=== PATIENT | female | born 1995 | race Caucasian/White ===

== ENCOUNTER 2018-10-07 10:37 | Inpatient (IN) ==
[2018-10-07 11:54] LABS: Amphetamine Screen,Urine Negative ng/mL (Cutoff=1000); Barbiturate Screen,Urine Negative ng/mL (Cutoff=200); Benzodiazepines Screen,Urine Negative ng/mL (Cutoff=200); Cannabinoid Screen,Urine Negative ng/mL (Cutoff = 50); Cocaine Screen,Urine Negative ng/mL (Cutoff= 300); Opiate Screen,Urine Negative ng/mL (Cutoff=300); Phencyclidine Screen,Urine Negative ng/mL (Cutoff=25)
[2018-10-07 12:50] LABS: Bilirubin,Urine Negative (Negative); Blood,Urine Moderate (Negative); Clarity,Urine Turbid (Clear); Color,Urine Dark Yellow (Yellow); Glucose,Urine (UA) Normal (Normal); Ketones,Urine Negative (Negative); Leukocyte Esterase,Urine Large (Negative); Nitrite,Urine Negative (Negative); Protein,Urine 30 mg/dL (Neg-Trace); Specific Gravity,Urine 1.016 (1.010-1.025); Urobilinogen,Urine Normal (Normal)
[2018-10-07 12:53] LABS: Bacteria,Urine Many per hpf (None-Few); Hyaline Casts,Urine None Seen per lpf (None-Few); RBC,Urine 0-3 per hpf (0-3); Squamous Epithelial Cell,Urine Many per lpf (None-Few); WBC,Urine TNTC per hpf (0-3)
--- NOTE | 2018-10-07 13:13 | Anesthesia Progress Note ---
Date of Encounter: 10/07/18 Time of Encounter: 13:08 Anesthesia Note - Note Note: 10/07/18 13:08 Evaluated patient for possible epidural for labor contractions. Assessment of patient revealed history of scoliosis of significant nature that required surgery at the age of 18 (2012). Pt does not know what levels or exact nature of surgery but states "there are two rods and screws." Assessment of the patient's back revealed a long scar that appears to run from C7 or T1 down to possibly T12 or L1 (difficult to fully assess levels of surgery). The patient understands the contraindications for epidural or spinal anesthesia. Questions from patient and family answered. Discussed with patient about possibility if needing to go to , that a GETA would be administered. Pt understands risks and benefits of GETA.
[2018-10-07 13:16] LABS: Amorphous Sediment,Urine Few (Few)
--- NOTE | 2018-10-07 15:00 | OB/GYN History & Physical ---
Date of Encounter: 10/07/18 Time of Encounter: 14:55 Assessment and Plan (1) 38 weeks gestation of Current visit: Yes Status: Acute Admit for labor GBS negative Consider AROM for augmentation Anticipate vaginal delivery POC per consult with Dr Vega History of Present Illness Chief complaint: Labor HPI: Ms. Ch is a 23 year old at 38 weeks and 4 days that presents to triage with c/o contractions. She denies leaking of fluid, vaginal bleeding, headaches, epigastic pain, and visual disturbances. She has had adequate care and has been seen by Dr Mathew. She has had a normal course. Labs: GBS negative Varicella immune Rubella immune RPR neg Blood type O+ Hep B NR HIV NR Past Med Surg Social Fam HX - Past Medical History Medical history: non-contributory Psychiatric history: no psych history - Past Surgical History Surgical History: non-contributory, orthopedic, other (spine - Shantal grecia (?)) Additional surgical history: scoliosis surgery 2013 - Social History Smoking Status: Never smoker Smokeless Tobacco Status: No Alcohol use: none Drug use: none Obstetrical History - Pregnancies : 1 Para: 0 Term: 0 : 0 Ab's: 0 Livin Medications and Allergies Pnv with Ca,No.72/Iron/FA [Pnv Plus Multivit Tab] 1 tab PO DAILY 10/07/18 [History] Allergy/AdvReac Type Severity Reaction Status Date / Time No Known Allergies Allergy Verified 12/31/17 13:35 Review of System OB All systems PM: reviewed and no additional remarkable complaints except as stated Exam - Constitutional Constitutional: well developed, well nourished, average body habitus, mild distress - HEENT HEENT: Normocephaly, Mucus Membranes Moist - Neck Neck exam: full ROM - Lungs Respiratory exam: CTAB - Cardiovascular Cardiovascular exam: RRR, +S1, +S2 - Abdomen Abdomen: Present: bowel sounds normal, gravid, non tender - Extremities Extremities exam: normal capillary refill, normal inspection, radial pulses palpable and symmetrical Deep Tendon Reflex Grade: 2+ Normal - Vulva Vulva: bilateral: normal - Vagina Vagina: Present: normal moisture - Cervix Dilation: 6 Effacement: 90 Station: 0 - Uterus Uterus exam: Present: normal size, normal contour. Absent: tender - Anus/Rectum Anus/Rectum: Present: normal perianal skin Results Abnormal lab results Urine Clarity Turbid (Clear) A 10/07/18 11:10 Urine Protein 30 mg/dL (Neg-Trace) H 10/07/18 11:10 Urine Blood Moderate (Negative) H 10/07/18 11:10 Ur Leukocyte Esterase Large (Negative) H 10/07/18 11:10 Urine Microscopic WBC TNTC per hpf (0-3) H 10/07/18 11:10 Ur Squamous Epith Cells Many per lpf (None-Few) H 10/07/18 11:10 Urine Bacteria Many per hpf (None-Few) H 10/07/18 11:10 Ur Culture Indicated? NO. (NO) A 10/07/18 11:10 All other labs normal. - VTE Reasons for not Prescribing Prophylaxis: Treatment not Indicated - Low risk for VTE
[2018-10-07] MEDS ORDERED: Ondansetron 4 MG/2 ML VIAL IVP PRN (15:05)
[2018-10-07] MEDS ORDERED: Famotidine 20 MG/2 ML VIAL IVP PRN (15:05)
[2018-10-07] MEDS ORDERED: Naloxone 0.4 MG/ML INJ IVP PRN (15:05)
[2018-10-07] MEDS ORDERED: Metoclopramide 10 MG/2 ML VIAL IVP PRN (15:05)
[2018-10-07] MEDS ORDERED: *HR* Nalbuphine 10 MG/ML AMPUL IVP PRN (15:05)
[2018-10-07 15:44] LABS: Basophils % 0.1 %; Eosinophils # 0.1 K/mcL (0.0-0.6); Eosinophils % 0.5 %; Hematocrit 32.8 % (35.3-44.9); Immature Granulocytes % 1.2 % (0-4); Lymphocytes # 1.7 K/mcL (0.6-4.6); Lymphocytes % 8.9 %; Mean Corpuscular HGB Conc 30.5 g/dL (31.6-35.5); Mean Corpuscular Hemoglobin 22.4 pg (28.0-33.3); Mean Corpuscular Volume 73.5 fL (83.0-100.0); Mean Platelet Volume 12.1 fL (9.4-12.4); Monocytes # 1.1 K/mcL (0.0-1.3); Monocytes % 5.5 %; Neutrophils # 16.5 K/mcL (1.6-8.9); Platelet Count 210 K/mcL (140-400); Red Blood Count 4.46 M/mcL (3.82-4.97); Segmented Neutrophils % 83.8 %
--- NOTE | 2018-10-07 20:06 | OB Labor Progress Note ---
Date of Encounter: 10/07/18 Time of Encounter: 20:03 Labor Progress Note - Subjective Subjective: Patient sleeping upon entering room; states contractions are uncomfortable, but she is able to sleep. - Vital Signs Vital Signs: VSS - Cervix Cervix: 7/90/0 - Heart Tones Heart Tones: 130 Category I tracing - [place]: Contractions every 3-4 minutes - Interventions Interventions: AROM for moderate of light blood stained fluid; Continue to monitor. Fetus and patient tolerated well. - Plan Plan: Continue routine labor management GBS negative Consider pitocin if needed for labor augmentation Anticipate vaginal delivery Patient not candidate for epidural due to history of spinal surgery with rods and screws POC per consult with Dr Vega
--- NOTE | 2018-10-07 21:16 | OB Labor Progress Note ---
Date of Encounter: 10/07/18 Time of Encounter: 21:14 Labor Progress Note - Subjective Subjective: Patient crying out during contractions. States she can no longer do this - Vital Signs Vital Signs: VSS - Cervix Cervix: 8/90/0-+1 - Heart Tones Heart Tones: 140 category I tracing - [place]: Contractions every 2-4 minutes - Plan Plan: Continue routine labor management GBS negative Shower with intermittent monitoring for pain control Discussed section pros/cons with patient; patient elects to continue labor Anticipate vaginal delivery POC per consult with Dr Vega
[2018-10-07] MEDS ORDERED: Oxytocin 20 units/ LR 1000 mL 20 UNIT/1,000 ML BAG IVC ONE (22:24)
--- NOTE | 2018-10-08 00:52 | Event Note ---
Date of Encounter: 10/07/18 Time of Encounter: 22:30 Patient requests section during pushing. Discussed risks/benefits of primary elective to both patient and with patient and her family. Patient is currently an anterior lip. Reassurance provided that this is a normal desire at this stage in labor without an epidural. Dr Vega consulted and requests that patient continue with labor and attempt a vaginal delivery. 2300 mild swelling noted to anterior cervical lip, 50 mg IV benadryl ordered.
[2018-10-08] MEDS ORDERED: *HR* HYDROmorphone (PF) 1 MG/ML SYRINGE IVP ONE (00:58)
--- NOTE | 2018-10-08 01:06 | OB/GYN Procedure Note ---
Delivery - Delivery Date: 10/08/18 Provider: Cydney De Anda Intrapartum events: none Delivery induction: none Delivery augmentation: rupture of membranes Delivery monitor: external FHT, external uterine Anesthesia: local - (s) A Delivery Date: 10/08/18 Delivery Time: 00:29 Presentation: vertex Position: ISAURO Route of delivery: Gender: Male Viability: Viable Pounds: 8 Ounces: 3 Weight Gram: 3.71 kg at 1 minute: 8 at 5 mins: 9 Shoulder Dystocia: not encountered Specimens collected: cord blood Cord: 3 umbilical vessels - Repair Episiotomy: none Laceration Description: Perineal - 2nd Degree (Perineal second degree and right posterior sulcus tear) - Complications Delivery complications: none Delivery comments: Patient progressed to complete and began coached pushing to of viable, v igorous male infant in the ISAURO position. No nuchal cord, no meconium, and no shoulder dystocia encountered. placed on maternal abdomen, warmed, dried and stimulated. Apgars 8 and 9 at one and five minutes of age respectively. Cord double clamped and cut after pulsations ceased with the assistance of friend of the mother. Dr Vega called to the room for laceration evaluation prior to delivery of placenta. Upon arrival to the room, Dr Vega assumes patient care for laceration repair and placental delivery. - Disposition Mom disposition: stable in LDR disposition: stable in LDR - Comments Comments: I was called into the room to repair a possible 3rd degree laceration though it turned out to be 2nd degree with bilateral sulcus lacerations. The lacerations were repaired in standard fashion with multiple sutures of 3-0 vicryl and the skin was closed with 4-0 vicryl. EBL was 450. Mother and stable.
[2018-10-08] MEDS ORDERED: *HR* Morphine 2 MG/ML SYRINGE SQ ONE (01:10)
[2018-10-08] MEDS ORDERED: *HR* Morphine 10 MG/ML VIAL SQ ONE (01:15)
[2018-10-08] MEDS ORDERED: Oxytocin 20 units/ LR 1000 mL 20 UNIT/1,000 ML BAG IVC ONE ×2 (02:34→03:51)
[2018-10-08] MEDS ORDERED: Acetaminophen 325 MG TABLET PO PRN (03:51)
[2018-10-08] MEDS ORDERED: Sennosides 8.6 MG TABLET PO PRN (03:51)
[2018-10-08] MEDS ORDERED: Oxytocin 20 units/ LR 1000 mL 20 UNIT/1,000 ML BAG IVC SCH (03:51)
[2018-10-08] MEDS ORDERED: Benzocaine/Menthol 56 GM AEROSOL SPRAY TP PRN (03:51)
[2018-10-08] MEDS ORDERED: Measles/Mumps/Rubella Vacc 0.5 ML VIAL SQ PRN (03:51)
[2018-10-08] MEDS ORDERED: *HR* Oxytocin 10 UNIT/ML VIAL IM ONE (09:42)
[2018-10-08] MEDS: Ibuprofen 600 MG TABLET PO PRN ×2 (10:40→20:45)
[2018-10-08] MEDS: Prenatal Vit/FA 1 EACH TABLET PO SCH (10:40)
[2018-10-08] MEDS: *HR* HYDROcodone/Acet 5/325 mg TABLET PO PRN (17:26)
[2018-10-09] MEDS: *HR* HYDROcodone/Acet 5/325 mg TABLET PO PRN (04:31)
[2018-10-09] MEDS: Prenatal Vit/FA 1 EACH TABLET PO SCH (08:09)
[2018-10-09 08:12] VITALS: BP 111/73
[2018-10-09] MEDS: Ibuprofen 600 MG TABLET PO PRN (08:17)
--- NOTE | 2018-10-09 09:24 | Discharge Summary ---
Date of Encounter: 10/09/18 Time of Encounter: 09:20 - Discharge Diagnosis (1) Status post normal vaginal delivery Priority: Secondary Status: Acute Comments: Status post vaginal delivery day 1 Meeting day 1 milestones Pain is 4/10 secondary to perineal and sulcus tears, on norco Ambulating without dizziness Appetite normal Voiding and passing flatus Lochia light Mood is appropriate Discussed safe spacing and control options Well to discharge Follow up in 4 weeks (2) 38 weeks gestation of Priority: Primary Status: Acute Comments: Delivered at 38 weeks 4 days Healthy male , 8lb 3 oz with apgars 8/9 Formula feeding (3) Perineal laceration Priority: Secondary Status: Acute Comments: Second degree perineal laceration with right posterior sulcus tear repaired Moderate pain Will send home with [facility] for pain control Qualifiers: Encounter type: initial encounter Qualified Code(s): S31.41XA - Laceration without foreign body of vagina and vulva, initial encounter (4) anemia Priority: Secondary Status: Acute Comments: Hgb 10, Hct 32.8 Continue ferrous sulfate - Discharge Medications Prescriptions: RX: HYDROcodone/Acet 5/325 mg [[place] 5-325 mg] 1 tab PO Q6HR PRN 5 Days #20 tablet PRN Reason: Moderate Pain (4-6) RX: Ibuprofen [Motrin] 600 mg PO Q6HR PRN #30 tablet PRN Reason: Cramping RX: Docusate [Colace] 100 mg PO BID #30 capsule RX: Ferrous Sulfate 325 mg PO DAILY #90 tablet Home Medications: RX: Pnv with Ca,No.72/Iron/FA [Pnv Plus Multivit Tab] 1 tab PO DAILY 10/07/18 [History] RX: Acetaminophen [Tylenol] 650 mg PO Q6HR PRN tablet 10/09/18 [Rx] RX: Benzocaine/Menthol [place] [Dermoplast [place]] 1 appl TP QID PRN aerosol 10/09/18 [Rx] RX: Docusate [Colace] 100 mg PO BID #30 capsule 10/09/18 [Rx] RX: Ferrous Sulfate 325 mg PO DAILY #90 tablet 10/09/18 [Rx] RX: HYDROcodone/Acet 5/325 mg [[place] 5-325 mg] 1 tab PO Q6HR PRN 5 Days #20 tablet 10/09/18 [Rx] RX: Hydrocortisone/Pramoxine [Epifoam] 1 appl TP TID bottle 10/09/18 [Rx] RX: Ibuprofen [Motrin] 600 mg PO Q6HR PRN #30 tablet 10/09/18 [Rx] Allergies/Adverse Reactions: Allergy/AdvReac Type Severity Reaction Status Date / Time No Known Allergies Allergy Verified 12/31/17 13:35 Data Procedures and tests throughout hospitalization: Laboratory Tests 10/07/18 10/07/18 10/07/18 10:56 11:10 15:06 WBC 19.6 H RBC 4.46 Hgb 10.0 L Hct 32.8 L MCV 73.5 L MCH 22.4 L MCHC 30.5 L RDW 14.0 Plt Count 210 MPV 12.1 Immature Gran % 1.2 Seg Neutrophils % 83.8 Lymphocytes % 8.9 Monocytes % 5.5 Eosinophils % 0.5 Basophils % 0.1 Neutrophils # 16.5 H Lymphocytes # 1.7 Monocytes # 1.1 Eosinophils # 0.1 Basophils # 0.0 Urine Color Dark Yellow Urine Clarity Turbid A Urine pH 6.0 Ur Specific [place] 1.016 Urine Protein 30 H Urine Glucose (UA) Normal Urine Ketones Negative Urine Blood Moderate H Urine Nitrite Negative Urine Bilirubin Negative Urine Urobilinogen Normal Ur Leukocyte Esterase Large H Urine Microscopic RBC 0-3 Urine Microscopic WBC TNTC H Ur Squamous Epith Cells Many H Amorphous Sediment Few Urine Bacteria Many H Hyaline Casts None Seen Ur Culture Indicated? NO. A Urine Opiates Screen Negative Ur Barbiturates Screen Negative Ur Phencyclidine Scrn Negative Ur Amphetamines Screen Negative U Benzodiazepines Scrn Negative Urine Cocaine Screen Negative U Marijuana (THC) Screen Negative Ur Drug Screen Interp See Below Date of admission: 10/07/18 15:05 Consults: 10/08/18 03:51 Consult to [facility] [employer] [CONS] Routine Comment: Vaginal delivery, consult needed Discharging clinician: Manuela Miles Anticipated date of discharge: 10/09/18 - Patient Status Disposition: Home, Self-Care Condition: Good Functional capacity at discharge: independent ambulation Overall status at discharge: patient is progressing back to baseline - Discharge Instructions Follow Up With: NONE,PCP [Primary Care Provider] - Connie Mathew, DO [Partnered Physician] - - Diet and Activity Activity: resume usual activities as tolerated Diet: advance to your usual diet Hospital Course Reason for admission: active labor Delivery: Episiotomy: none Laceration: 2nd degree (Second degree perineal and right posterior sulcus, repaired) Other procedures: none complications: none Discharge diagnosis: IUP at term delivered baby: male Hospital course: Patient progressed to complete and began coached pushing to of viable, vigorous male in the ISAURO position. No nuchal cord, no meconium, and no shoulder dystocia encountered. placed on maternal abdomen, warmed, dried and stimulated. Apgars 8 and 9 at one and five minutes of age respectively. Cord double clamped and cut after pulsations ceased with the assistance of friend of the mother. Dr Vega called to the room for laceration evaluation prior to delivery of placenta. Upon arrival to the room, Dr Vega assumes patient care for laceration repair and placental delivery Time Attestation: Total time spent providing and/or coordinating discharge services: Time Spent: Greater than 30 minutes Exam - Constitutional Vitals: Temp Pulse Resp BP Pulse Ox 98 F 98 14 111/73 97 10/09/18 08:11 10/09/18 08:11 10/09/18 08:11 10/09/18 08:11 10/09/18 08:11 General appearance IM: A&O X 3, pleasant, no acute distress - Respiratory Respiratory exam: Present: CTAB. Absent: rales, rhonchi, wheezes - Cardiovascular Cardiovascular exam IM: Present: RRR, +S1, +S2 - GI/Abdominal GI/Abdominal exam IM: normal bowel sounds, soft - Rectal Rectal exam: deferred - External exam: lacerations Uterine Tone: Firm Uterus Position: 2 Fingers Below Umbilicus - Extremities Exam Extremities exam IM: Present: normal inspection. Absent: calf tenderness, pedal edema - Neurological Exam Neurological exam: alert, CN II-XII intact - Psychiatric Additional comments: Mood is appropriate - Attending Attestation I examined this patient and my medical decision-making was reviewed with the Resident Physician. I agree with the documented findings, disposition and treatment plan as described. Brianda De Anda CNM
== END 2018-10-09 13:43 | disposition home or self-care (01) | DRG 807 ==
LOC: 1NENULAB → 1NENUOBS 10-08 03:46
PROVIDERS: ADMIT Advanced Practice Midwife; ATTEND Advanced Practice Midwife